=== PATIENT | male | born 1975 ===

== ENCOUNTER → 2017-07-11 | Emergency (ER) | payer OTHER | END | disposition home or self-care (01) | LOC: ER 09:31 | DX: B34.9 Viral infection, unspecified (principal) ==

== ENCOUNTER 2017-11-30 16:32 | Emergency (ER) | payer OTHER ==
[~2017-11-30] VITALS: Ht 165.1 cm; Wt 89.8 kg
== END 2017-11-30 20:30 | disposition home or self-care (01) ==
LOC: ER 16:32
DX: M54.5 Low back pain (principal)